=== PATIENT | male | born 1980 | race Caucasian/White ===

== ENCOUNTER 2017-08-07 12:37 | Emergency (ER) | payer SELFPAY ==
--- NOTE | 2017-08-07 12:41 | ED PDOC ---
Arrival/HPI - General Time Seen by Provider: 08/07/17 12:39 Historian: Patient - History of Present Illness Narrative History of Present Illness (Text): 08/07/17 12:40 37 y/o male, no significant pmh, nkda, c/o lt. lower back pain x 5 days s/p heavy lifting. Aching pain, still having pain after the motrin, non-radiating, no numbness or tingling, no night sweat, no dizziness, no rash, no urinary or bowel incontinence or retention, no abdominal pain, no pelvic pain, no other medical or Past Medical History - Provider Review Nursing Documentation Reviewed: Yes Family/Social History - Physician Review Nursing Documentation Reviewed: Yes Family/Social History: Unknown Family HX Allergies/Home Meds Allergies/Adverse Reactions: Allergies No Known Allergies Allergy (Verified 08/07/17 12:45) Review of Systems - Review of Systems Constitutional: absent: Fatigue, Fevers Eyes: absent: Vision Changes ENT: absent: Hearing Changes Respiratory: absent: SOB, Cough Cardiovascular: absent: Chest Pain Gastrointestinal: absent: Abdominal Pain, Nausea, Vomiting Musculoskeletal: Back Pain, Myalgias. absent: Arthralgias, Neck Pain, Joint Swelling Skin: absent: Rash, Pruritis Neurological: absent: Headache, Dizziness Physical Exam Vital Signs Reviewed: Yes Vital Signs Temp Pulse Resp BP Pulse Ox 08/07/17 13:55 68 18 104/71 100 08/07/17 12:48 98.0 F 70 17 102/69 100 Temperature: Afebrile Blood Pressure: Normal Pulse: Regular Respiratory Rate: Normal Appearance: Positive for: Well-Appearing, Non-Toxic Pain Distress: Severe Mental Status: Positive for: Alert and Oriented X 3 - Systems Exam Head: Present: Atraumatic, Normocephalic Pupils: Present: PERRL Extroacular Muscles: Present: EOMI Conjunctiva: Present: Normal Mouth: Present: Moist Mucous Membranes Neck: Present: Normal Range of Motion Respiratory/Chest: Present: Clear to Auscultation, Good Air Exchange. No: Respiratory Distress, Accessory Muscle Use Cardiovascular: Present: Regular Rate and Rhythm, Normal S1, S2. No: Murmurs Abdomen: Present: Normal Bowel Sounds. No: Tenderness, Distention, Peritoneal Signs Back: Present: Normal Inspection, Other (LS spine: +ttp and spasm noted on the lt. paraspinal muscle region, no midline tenderness or step off, no rash, FROM without limitation but pain with left lateral movement, sensation intact, motor 5/5, no saddling gait. ). No: CVA Tenderness, Midline Tenderness, Pain with Leg Raise, Decubitus Ulcer Upper Extremity: Present: Normal Inspection. No: Cyanosis, Edema Lower Extremity: Present: Normal Inspection. No: Edema Neurological: Present: GCS=15, CN II-XII Intact, Speech Normal Skin: Present: Warm, Dry, Normal Color. No: Rashes Psychiatric: Present: Alert, Oriented x 3, Normal Insight, Normal Concentration Medical Decision Making ED Course and Treatment: 08/07/17 13:00 -xray -toradol/percocet -lidoderm patch -cane -observe and reassess 08/07/17 14:30 -Xray show no fracture or subluxation. -Pt. walking with normal gait and posture, no focal neurological deficits. Pt. is not driving home and taking the Uber home. -Discharge home with celebrex, flexeril, lidoderm patch, cane, heat compression , follow up with your own pmd and orthopedic within 2 days, return to the ER for any new or worsening signs or symptoms. - RAD Interpretation Radiology Orders: 08/07/17 12:54 LS SPINE WITH OBL > 18 YRS OLD [RAD] Stat PROCEDURE: Radiographs of the Lumbar Spine. HISTORY: lt. lower back pain COMPARISON: No prior. FINDINGS: BONES: Normal alignment. No listhesis. No fracture. DISC SPACES: Unremarkable. OTHER FINDINGS: None. IMPRESSION: Unremarkable radiographs of the lumbar spine. Break Out Worker: Radiologist - Medication Orders Current Medication Orders: Discontinued Medications Ketorolac Tromethamine (Toradol) 60 mg IM STAT STA Stop: 08/07/17 12:55 Last Admin: 08/07/17 14:19 Dose: 60 mg MAR Pain Assessment Document 08/07/17 14:19 LA (Rec: 08/07/17 14:20 LA [id number]) Pain Reassessment Is this a pain reassessment? No Sleep Is patient sleeping during reassessment? No Presence of Pain Presence of Pain Yes Location Upper or Lower Lower Pain Location Body Site Back Description Description Sharp Intensity of Pain at present 10 Pain Behavior Guarding IM Administration Charges Document 08/07/17 14:19 LA (Rec: 08/07/17 14:20 LA [id number]) Injection Site MAR Injection Site Left Deltoid Charges for Administration # of IM Administrations 1 Lidocaine (Lidoderm) 1 ea TD DAILY LJ Last Admin: 08/07/17 14:20 Dose: 1 ea MAR Transdermal Patch Site Document 08/07/17 14:20 LA (Rec: 08/07/17 14:20 LA [id number]) Transdermal Patch Site Transdermal Patch Site Left Lower Back Lidocaine (Lidoderm) 1 ea TD STAT STA Stop: 08/07/17 14:12 Oxycodone/Acetaminophen (Percocet 5/325 Mg Tab) 1 tab PO STAT STA Stop: 08/07/17 12:55 Last Admin: 08/07/17 14:18 Dose: 1 tab MAR Pain Assessment Document 08/07/17 14:18 LA (Rec: 08/07/17 14:19 LA [id number]) Pain Reassessment Is this a pain reassessment? No Sleep Is patient sleeping during reassessment? No Presence of Pain Presence of Pain Yes Pain Scale Used Pain Scale Used Numeric Location Upper or Lower Lower Pain Location Body Site Back Description Description Constant Intensity of Pain at present 10 Pain Behavior Guarding - PA / PL[employer] / Resident Statement MD/DO has reviewed & agrees with the documentation as recorded. Disposition/Present on Arrival - Present on Arrival Any Indicators Present on Arrival: No History of DVT/PE: No History of Uncontrolled Diabetes: No Urinary Catheter: No History of Decub. Ulcer: No - Disposition Have Diagnosis and Disposition been Completed?: Yes Diagnosis: Lower back injury, Low back pain, Back spasm Disposition: HOME/ ROUTINE Disposition Time: 13:02 Patient Plan: Discharge Patient Problems: Current Active Problems Problem Status Onset Back spasm Acute Low back pain Acute Lower back injury Acute Condition: IMPROVED Additional Instructions: -Discharge home with celebrex, flexeril, lidoderm patch, cane, heat compression , follow up with your own pmd and orthopedic within 2 days, return to the ER for any new or worsening signs or symptoms. Prescriptions: Celecoxib [CeleBREX] 200 mg PO DAILY PRN #14 cap PRN Reason: Other Cyclobenzaprine [Cyclobenzaprine HCl] 10 mg PO TID PRN #21 tab PRN Reason: Other Lidocaine 5% [Lidoderm] 1 patch TOP DAILY PRN #14 patch PRN Reason: Other Referrals: PCP,NO [Primary Care Provider] - Follow up with primary [facility] [place] [Outside] - Follow up with primary Pattie Aldana MD [Staff Provider] - Follow up with primary Forms: WORK NOTE
[2017-08-07 12:48] VITALS: TEMP 98; O2SAT 100
[2017-08-07] MEDS ORDERED: Oxycodone/Acetaminophen 5/325 mg Tab PO STA (12:54)
[2017-08-07] MEDS ORDERED: Lidocaine 5% Patch TD SCH (13:00)
[2017-08-07 13:57] VITALS: BP 104/71; PULSE 68; RESP 18
[2017-08-07] MEDS ORDERED: Lidocaine 5% Patch TD STA (14:11)
--- NOTE | 2017-08-07 14:24 | RAD ---
PROCEDURE: Radiographs of the Lumbar Spine. HISTORY: lt. lower back pain COMPARISON: No prior. FINDINGS: BONES: Normal alignment. No listhesis. No fracture. DISC SPACES: Unremarkable. OTHER FINDINGS: None. IMPRESSION: Unremarkable radiographs of the lumbar spine.
== END 2017-08-07 14:53 | disposition home or self-care (01) ==
LOC: ED 12:37
DX: S39.92XA Unspecified injury of lower back, initial encounter (principal); X50.0XXA Overexertion from strenuous movement or load, initial encounter; Y93.89 Activity, other specified; Y92.009 Unspecified place in unspecified non-institutional (private) residence as the place of occurrence of the external cause
CPT/HCPCS: 72110; 96372; 99282; J1885